=== PATIENT | female | born 1990 | race Caucasian/White ===

== ENCOUNTER 2017-01-03 07:15 | Inpatient (IN) ==
[2017-01-03] MEDS ORDERED: METHYLERGONOVINE 0.2 MG/ML INJECTION IM PRN (07:17)
[2017-01-03] MEDS ORDERED: MAG-AL + SIM ORAL LIQUID 30ml PO PRN ×2 (07:17→18:05)
[2017-01-03] MEDS ORDERED: CARBOPROST 250 MCG/ML INJECTION IM PRN (07:17)
[2017-01-03] MEDS ORDERED: ACETAMINOPHEN 500 MG TABLET PO PRN ×2 (07:17→18:05)
[2017-01-03] MEDS ORDERED: LIDOCAINE 1% (10mg/ml) 2mL INJ PF SDV ID PRN (07:17)
[2017-01-03] MEDS: LR 1,000 ML IV PRN ×3 (07:37→14:59)
[2017-01-03 07:59] VITALS: BMI 38.0
[2017-01-03] MEDS ORDERED: OXYTOCIN DRIP 30 UNIT/500 ML ML IV PRN (08:00)
[2017-01-03] MEDS ORDERED: AMPICILLIN 2 GM in NS 100 ML IV ONE (08:00)
[2017-01-03] MEDS ORDERED: D5LR 1,000 ML IV PRN (08:00)
--- NOTE | 2017-01-03 09:25 | Anesthesia Preoperative Report ---
Anesthesia Epidural/Spinal Rec - Date and Time Date: 01/03/17 Procedure: Labor Epidural Plan: Epidural - Vital Signs Vital Signs: Temperature 98.3 F 01/03/17 07:45 Pulse Rate 89 01/03/17 07:45 Respiratory Rate 16 01/03/17 07:45 Blood Pressure 122/79 01/03/17 07:45 Pulse Oximetry 98 01/03/17 07:45 /Para: P:2 - Medictaions & Allergies Inpatient Medications: Current Medications Acetaminophen (Tylenol) 500 - 1,000 mg PO Q4H PRN PRN Reason: Pain Al Hydroxide/Mg Hydroxide (Maalox Plus) 30 ml PO Q3H PRN PRN Reason: Indigestion Calcium Carbonate (Tums) 500 - 1,000 mg PO Q2H PRN PRN Reason: Indigestion Carboprost Tromethamine (Hemabate) 250 mcg IM O PRN PRN Reason: .Downtime Ampicillin Sodium 1 gm/ Sodium (Chloride) 100 mls @ 200 mls/hr IV Q4H AMIRA Dextrose/Lactated Ringer's (Dextrose 5%-Lactated Ringers) 1,000 mls @ 125 mls/ hr IV .Q8H PRN PRN Reason: Labor Oxytocin (Pitocin Drip) 30 unit in 500 mls @ 2 mls/hr IV .Q24H PRN; Protocol PRN Reason: Induction/Augmentation Lactated Ringer's (Lactated Ringers) 1,000 mls @ 999 mls/hr IV .Q1H1M PRN Last Admin: 01/03/17 07:37 Dose: 999 mls/hr Lidocaine HCl (Xylocaine-Mpf 1% Vial) 0.2 mg ID O PRN PRN Reason: IV Start Methylergonovine Maleate (Methergine) 0.2 mg IM O PRN Misoprostol (Cytotec) 800 mcg CA ONCE PRN Allergies/Adverse Reactions: Allergies Allergy/AdvReac Type Severity Reaction Status Date / Time No Known Allergies Allergy Unverified 03/27/13 10:59 - Home Medications Home Medications: Home Medications Medication Instructions Recorded Confirmed Type Vits W-Ca,Fe,Fa(<1MG) 1 tab PO DAILY #0 03/27/13 History () - Medical History Other History: Reports: Now - Surgical History Anesthesia Reactions: None Hx Family Anesthesia Reaction: No History of Motion Sickness: No - Social History Second Hand Exposure: No Substance Use Type: does not use Alcohol Intake Frequency: does not drink - Pertinent Findings Lab Data: CBC and BMP 01/03/17 07:34 EKG Rhythm: Normal Sinus Rhythm - Physical Exam Respiratory Exam: lungs clear Cardiovascular Exam: regular rate and rhythm - Airway Assessment Mallampati Score: II TMD: 3 Fingerbreadths Neck Extension: good Overall Assessment: may be difficult intubation - ASA ASA Score: 2 - Discussion Discussion: Discussed risks/options/alternatives of anesthesia and questions answered. Patient consents. Nursing pain assessment noted. Anesthesia Discussion: spouse Attestation Statement: Prior to the delivery of any anesthetic medication, I examined the patient, developed the plan, obtained the patient's consent and discussed the risk and benefits of the procedure with the patient/guardian.
--- NOTE | 2017-01-03 09:53 | Progress Note ---
DATE 01/02/2017 26-year-old white female sent over from my office for nonreactive NST. She reports having decreased movement since yesterday evening. We gave a liter of LR bolus and heart tones became reactive and the patient could feel movement. We talked about options. She already has an induction scheduled for postdates on the . I offered induction tomorrow instead since she is past 39 weeks. She will consider her options and call me back later tonight and let me know. Questions were answered to her satisfaction. JAXON
[2017-01-03] MEDS: CALCIUM CARBONATE Chewable 500mg TABLET PO PRN ×2 (10:41→16:21)
[2017-01-03] MEDS: AMPICILLIN 1 GM in NS 100 ML IV SCH ×2 (11:55→15:13)
[2017-01-03] MEDS ORDERED: ROPIVACAINE 0.2% 2MG/ML INJ 40 MG, SUFentanil 50 MCG in NS 100 ML INFIL ONE (16:06)
[2017-01-03] MEDS ORDERED: DiphenhydrAMINE 25 MG CAPSULE PO PRN (18:05)
[2017-01-03] MEDS ORDERED: BENZOCAINE 20% SPRAY 0.5 ML MM ONE (18:05)
[2017-01-03] MEDS ORDERED: HYDROCODONE/APAP 5mg/325mg TABLET PO PRN (18:05)
[2017-01-03] MEDS ORDERED: CALCIUM CARBONATE Chewable 500mg TABLET PO PRN (18:05)
[2017-01-03] MEDS ORDERED: MEASLES-MUMPS-RUBELLA VACCINE 0.5ml INJECTION SQ ONE (18:05)
[2017-01-03] MEDS ORDERED: HYDROCORTISONE 2.5% CREAM 30gm RECTALLY PRN (18:05)
[2017-01-03] MEDS: OXYTOCIN DRIP 30 UNIT/500 ML ML IV SCH (18:12)
[2017-01-03] MEDS: SERTRALINE 50 MG TABLET PO SCH (18:52)
--- NOTE | 2017-01-03 19:38 | Labor and Delivery Note ---
DATE OF DELIVERY: 01/03/2017 DIAGNOSES 1. 26-year-old white female, G4, P2 at 39.3 weeks gestational age. 2. Pitocin induction of labor for decreased movement at term. 3. GBS prophylaxis. 4. Epidural anesthesia. 5. Spontaneous vaginal delivery. 6. OP rotating to OA. 7. Nuchal cord x 1. 8. Male infant, 3613 g, 8/9 Apgars (Kennedy Loo). DESCRIPTION This is a patient of mine who was in yesterday with decreased movement for the last 24 hours. I gave her a liter of LR and heart tones became reassuring. Since she is past 39 weeks we went ahead and added her on for induction today. Cervix was initially 1 cm dilated. Pitocin reached a maximum of 28 milliunits/minute. The patient got an epidural block. Eventually she made it to a spontaneous vaginal delivery. Infant was OP and rotated with pushing to OA. She just pushed for one contraction. There was a nuchal cord x 1 that was delivered through. Infant was bulb suctioned after delivery of the head and then again after delivery of the body. Cord was allowed to drain for two minutes, was doubly clamped and cut and the was taken to the isolette per patient preference. Placenta delivered spontaneously and was intact. Perineum was intact. At time of dictation mother and are doing well. [facility]
[2017-01-03] MEDS: IBUPROFEN 800 MG TABLET PO PRN (22:07)
[2017-01-04] MEDS: OXYTOCIN DRIP 30 UNIT/500 ML ML IV SCH (02:21)
--- NOTE | 2017-01-04 08:08 | OB/GYN Progress Note ---
OB-PP Progress Note - General PPD1 - Subjective Date: 01/04/17 Lochia: Minimal Pain: contolled Voiding: voiding - Objective Vital Signs: Last Vital Signs Temp 97.9 F 01/04/17 07:15 Pulse 102 H 01/04/17 07:15 Resp 16 01/04/17 07:15 BP 141/84 H 01/04/17 07:15 Pulse Ox 98 01/04/17 07:15 Urine Output: good General: alert and oriented Abdomen: fundus firm Extremities: non-tender - Assessment Assessment: - Plan Plan: routine care ( Planning to stay until tomorrow.)
[2017-01-04 08:16] VITALS: O2SAT 97
[2017-01-04] MEDS: DOCUSATE CALCIUM 240 MG CAPSULE PO SCH (10:19)
[2017-01-04] MEDS: SERTRALINE 50 MG TABLET PO SCH (10:19)
[2017-01-04] MEDS: IBUPROFEN 800 MG TABLET PO PRN ×2 (13:35→21:17)
--- NOTE | 2017-01-04 17:51 | Anesthesia Postoperative Note ---
- Date and Time Date: 01/04/17 Time: 17:51 - Status Patient Participated in Evaluation: Patient Participated in Person Vital Signs: Temperature 97.8 F 01/04/17 15:40 Pulse Rate 73 01/04/17 15:40 Respiratory Rate 18 01/04/17 15:40 Blood Pressure 136/80 01/04/17 15:40 Pulse Oximetry 97 01/04/17 11:30 Respiratory Function: Airway Patent Cardiovascular Function: Regular Pulse EKG: Sinus Rhythm Mental Status: Alert and Oriented Pain Intensity: 0 Hydration: Taking PO Fluids Complications During Recover: None Apparent - Follow-Up Instructions Instructions: Per Surgeon
[2017-01-04 22:09] VITALS: RESP 16
[2017-01-05 07:11] VITALS: BP 133/80; PULSE 69; TEMP 97.8
--- NOTE | 2017-01-05 09:14 | OB/GYN Progress Note ---
OB-PP Progress Note - General PPD2 Maternal Group B Strep: Positive Maternal blood type: O+ Maternal Rubella Status: Not Immune - Subjective Date: 01/05/17 Lochia: Minimal Pain: contolled Voiding: voiding Nausea or Vomiting Present: No - Objective Vital Signs: Last Vital Signs Temp 97.8 F 01/05/17 06:45 Pulse 69 01/05/17 06:45 Resp 16 01/05/17 06:45 BP 133/80 01/05/17 06:45 Pulse Ox 97 01/05/17 06:45 General: alert and oriented Respiratory: non-labored Abdomen: fundus firm, non-tender Extremities: non-tender Edema: none - Assessment Assessment: SP, - Plan Plan: routine care, discharge home
--- NOTE | 2017-01-05 09:16 | Discharge Instructions ---
Discharge Plan - Med Rec/Dispo Referrals/Follow Up: Ruddy Erwin MD [Physician] - Prescriptions: New Hydrocodone/APAP 5/325 [[place] 5/325] 1 - 2 tab PO Q4H PRN #30 tab PRN Reason: Pain Ibuprofen [Motrin] 800 mg PO Q8H PRN #30 tab PRN Reason: Pain Sertraline [Zoloft] 50 mg PO DAILY #30 tab Continue Amoxicillin 500 mg PO TID 10 Days #30 tab Vits W-Ca,Fe,Fa(<1MG) () 1 tab PO DAILY #0 - Disposition 01 Discharged Home, Self-Care
[2017-01-05] MEDS: DOCUSATE CALCIUM 240 MG CAPSULE PO SCH (10:46)
[2017-01-05] MEDS: SERTRALINE 50 MG TABLET PO SCH (10:47)
[2017-01-05] MEDS: IBUPROFEN 800 MG TABLET PO PRN (10:54)
== END 2017-01-05 12:40 | disposition home or self-care (01) | DRG 775 ==
LOC: MC 07:15
PROVIDERS: ADMIT Obstetrics & Gynecology; ATTEND Obstetrics & Gynecology